=== PATIENT | male | born 1985 | race African-American/Black ===

== ENCOUNTER 2022-12-24 11:31 | Emergency (ER) | payer MEDICAID ==
[~2022-12-24] VITALS: Ht 190.5 cm; Wt 100.0 kg
[2022-12-24] MEDS ORDERED: HYDROCODONE/ACETAMINOPHEN 5/325MG TABLET PO ONE (12:15)
[2022-12-24] MEDS ORDERED: MORPHINE SULFATE 10 MG/ML CPJ IM ONE (14:15)
[2022-12-24] MEDS ORDERED: ONDANSETRON HCL 4MG/2ML INJ IV STA (14:18)
[2022-12-24] MEDS ORDERED: MORPHINE SULFATE 4 MG/ML CPJ (NOT FOR IM USE) IV STA (14:18)
[2022-12-24] MEDS ORDERED: IBUP-2029 MT (15:35)
[2022-12-24] MEDS ORDERED: HYDR-4001 MT (15:35)
[2022-12-24] MEDS ORDERED: MORPHINE SULFATE 4 MG/ML CPJ (NOT FOR IM USE) IV ONE (16:00)
[2022-12-24 17:45] VITALS: BP 125/79
== END 2022-12-24 17:46 | disposition home or self-care (01) ==
LOC: ER 11:31
DX: S82.142A Displaced bicondylar fracture of left tibia, initial encounter for closed fracture (principal); W01.0XXA Fall on same level from slipping, tripping and stumbling without subsequent striking against object, initial encounter; Y93.67 Activity, basketball; Y92.9 Unspecified place or not applicable
CPT/HCPCS: 73560; 73590; 73700; 96374; 96375; 96376; 99285; J2270; J2405; L1830; Z7610